=== PATIENT | male | born 1990 | race Caucasian/White ===

== ENCOUNTER 2017-03-07 04:16 | Emergency (ER) | payer BC, MEDICAID ==
[2017-03-07 04:24] VITALS: BP 102/62
--- NOTE | 2017-03-07 04:42 | ED ---
Ghanshyam Helton Thomas, scribed for Thomas Ziegler MD on 03/07/17 at 0438 . Syncope/Near Syncope - HPI Summary HPI Summary: The pt is a 26 y/o M who was visiting his (who is a patient at [facility] at this moment) when he had a syncopal episode upon seeing blood. He feels better at the time of examination. He denies any head trauma or complaints at this time. - History Of Current Complaint Chief Complaint: EDSyncope Time Seen by Provider: 03/07/17 04:31 Hx Obtained From: Patient Onset/Duration: Sudden Onset Context: Witnessed Associated Head Trauma: No Aggravating Factor(s): Nothing Alleviating Factor(s): Nothing Associated Signs And Symptoms: Negative Related History: Similar Episode/Dx as - Past syncopal episodes upon seeing blood - Allergies/Home Medications Allergies/Adverse Reactions: Allergies Allergy/AdvReac Type Severity Reaction Status Date / Time No Known Allergies Allergy Verified 03/07/17 04:21 PMH/Surg Hx/FS Hx/Imm Hx Previously Healthy: No Respiratory History: Denies: Hx Chronic Obstructive Pulmonary Disease (COPD) - Surgical History Surgery Procedure, Year, and Place: back surgery Infectious Disease History: No Infectious Disease History: Denies: Traveled Outside the [place] in Last 30 Days - Family History Known Family History: Positive: Hypertension - Social History Alcohol Use: Rare Substance Use Type: Reports: None Smoking Status (MU): Never Smoked Tobacco Review of Systems Negative: Fever Positive: Syncope All Other Systems Reviewed And Are Negative: Yes Physical Exam Triage Information Reviewed: Yes Vital Signs On Initial Exam: Initial Vitals Temp Pulse Resp BP Pulse Ox 98 F 52 16 102/62 99 03/07/17 04:22 03/07/17 04:22 03/07/17 04:22 03/07/17 04:22 03/07/17 04:22 Vital Signs Reviewed: Yes Appearance: Positive: Well-Appearing, No Pain Distress Skin: Positive: Warm Head/Face: Positive: Normal Head/Face Inspection Eyes: Positive: CRESCENCIO ENT: Positive: Hearing grossly normal Neck: Positive: Supple Respiratory/Lung Sounds: Positive: Breath Sounds Present Cardiovascular: Positive: RRR Abdomen Description: Positive: Nontender, Soft Bowel Sounds: Positive: Present Musculoskeletal: Positive: Strength/ROM Intact Neurological: Positive: Alert, Oriented to Person Place, Time Psychiatric: Positive: Affect/Mood Appropriate AVPU Assessment: Alert - Ozzy Coma Scale Coma Scale Total: 15 Diagnostics - Vital Signs Vital Signs Temp Pulse Resp BP Pulse Ox 03/07/17 04:22 98 F 52 16 102/62 99 - Laboratory Lab Statement: Any lab studies that have been ordered have been reviewed, and results considered in the medical decision making process. Course/Dx Assessment/Plan: The pt is a 26 y/o M who was visiting his (who is a patient at [facility] at this moment) when he had a syncopal episode upon seeing blood. He feels better at the time of examination. He denies any head trauma or complaints at this time. Patient is diagnosed with vasovagal syncope. Patient will be discharged home with follow up by PCP. Patient is agreeable to this plan. - Diagnoses Provider Diagnoses: Vasovagal syncope Discharge - Discharge Plan Condition: Stable Disposition: HOME Patient Education Materials: Syncope (ED) Referrals: Marc GARCIAS,Musa Cantrell [Primary Care Provider] - 3 Days The documentation as recorded by the Ghanshyam robert Thomas accurately reflects the service I personally performed and the decisions made by me, Thomas Ziegler MD.
== END 2017-03-07 04:59 | disposition home or self-care (01) ==
LOC: ED 04:16
DX: R55 Syncope and collapse (principal)
CPT/HCPCS: 99281